=== PATIENT | male | born 1945 | race Caucasian/White ===

== ENCOUNTER 2022-11-08 12:46 | Emergency (ER) | payer MEDICARE, OTHER ==
[2022-11-08 12:56] VITALS: BP 155/76
--- NOTE | 2022-11-08 13:53 | CT Report ---
PROCEDURE: CHEST WO INDICATIONS: fall, R side rib pain TECHNIQUE: Noncontrast 1mm axial images were acquired from the pulmonary apices to the posterior costophrenic an gles. Axial 5 mm soft tissue kernel reconstructions were performed as well as 8 mm axial MIP and cor onal and sagittal 5 mm reformations. For radiation dose reduction, the following was used: automate d exposure control, adjustment of mA and/or kV according to patient size. COMPARISON: None. FINDINGS: Image quality: Excellent. Lungs and pleura: No acute air space opacities. No pleural effusions or pneumothorax. Central and peripheral airways are patent and normal in caliber. Mediastinum: Heart size is normal. No pericardial effusion. No mediastinal adenopathy by size crit eria. Thoracic aorta and central pulmonary arteries are normal in size. Esophagus is normal in johnny delfino. There is a small to moderate hiatal hernia. Bones and chest wall: There is a minimally displaced fracture of the right lateral seventh rib and a mildly displaced fracture of the right lateral eighth rib, as seen on series 12 image 229. No suspicious bony lesions. No vertebral body compression fractures. No axillary or supraclavicular adenopathy by size criteria. The thyroid is normal in size and there are no incidental findings. Abdomen: A simple appearing 8.5 cm cyst is seen involving the inferolateral aspect of the left kidney . The visualized portions of the upper abdominal structures are otherwise within normal limits. IMPRESSION: Fractures of the right lateral seventh and eighth ribs. No associated pneumothorax is seen. Additional findings: Small to moderate hiatal hernia Simple appearing left renal cyst Reviewed by: Adan Edwards MD on 11/08/2022 12:51 PM [facility] Approved by: Adan Edwards MD on 11/08/2022 12:51 PM [facility] Station ID: [id number]
[2022-11-08] MEDS ORDERED: HYDROcod/ACETAM 5/325 MG TABLET PO STA (14:41)
[2022-11-08] MEDS ORDERED: LIDOCAINE PATCH 5% TOP STA (14:41)
--- NOTE | 2022-11-08 14:45 | ED Physician Documentation ---
PD HPI BACK PAIN - Stated complaint Stated Complaint: FALL/RIB PX - Chief complaint Chief Complaint: Trauma Ch/Bk - History obtained from History obtained from: Patient - Additional information Additional information: [place] and stepped on a log which came out from under him and hit another log square on the right chest. This was 3 days ago. He has increasing right sided chest wall pain and pain with deep breathing. No other injuries. Review of Systems Constitutional: denies: Fever, Chills Nose: reports: Reviewed and negative Throat: reports: Reviewed and negative Cardiac: reports: Reviewed and negative PD PAST MEDICAL HISTORY - Present Medications Home Medications: Ambulatory Orders Medication Instructions Recorded Confirmed HYDROcod/ACETAM 5/325 [[place] 5/325] 1 - 2 tab PO Q6H PRN #20 tablet 11/08/22 Lidocaine Patch 5% [Lidoderm Patch] 1 patch TOP DAILY PRN #10 patch 11/08/22 - Allergies Allergies/Adverse Reactions: Allergies Allergy/AdvReac Type Severity Reaction Status Date / Time Penicillins Allergy Unknown Verified 11/08/22 12:50 PD ED PE NORMAL - Vitals Vital signs reviewed: Yes - General General: Alert and oriented X 3, No acute distress - HEENT HEENT: PERRL, EOMI - Neck Neck: Supple, no meningeal sign, No bony TTP - Cardiac Cardiac: RRR, No murmur - Respiratory Respiratory: No respiratory distress, Clear bilaterally - Back Back: Other (He has ecchymosis in the posterior axillary line to the mid right ribs. Tender there as well and winces with motion. No midline spinal tenderness.) - Neuro Neuro: Alert and oriented X 3, Normal speech Results - Vitals Vitals: Vital Signs - 24 hr 11/08/22 12:50 Temperature 36.5 C Heart Rate 81 Respiratory 16 Rate Blood Pressure 155/76 H O2 Saturation 97 Oxygen O2 Source Room air PD Medical Decision Making - ED course ED course: 77-year-old gentleman with chest wall injury. Differential diagnosis includes pneumothorax, rib fracture, or more serious internal injury. CT of the chest was done and interpreted independently by and by me showing right seventh and eighth minimally displaced rib fractures. Diagnosis was discussed with patient. RT was consulted for incentive spirometer and teaching. I am prescribing a short course of short-acting opioid pain medication for this patient. I have reviewed the patients [employer]ER and no concerning findings were noted. I have discussed that the opioids are for short term therapy only, and will not be refilled from the ED. Departure - Departure Disposition: 01 Home, Self Care Clinical Impression: Ribs, multiple fractures Condition: Good Record reviewed to determine appropriate education?: Yes Instructions: ED Fx Rib Prescriptions: Lidocaine Patch 5% [Lidoderm Patch] 1 patch TOP DAILY PRN #10 patch PRN Reason: pain HYDROcod/ACETAM 5/325 [[place] 5/325] 1 - 2 tab PO Q6H PRN #20 tablet PRN Reason: Pain Comments: You have Mildly displaced seventh and eighth rib fractures on the right side. There is no punctured lung or other serious injury identified. I sent a prescription for painkillers and lidocaine patches to [facility] in [place]. Use the incentive spirometer as often as you can while awake to encourage you to take deep breaths. Follow-up with your doctor in 1 week for recheck, return for new or worsening symptoms. I am prescribing a short course of narcotic pain medication for you. These are potentially dangerous and addictive medications that should be used carefully. These medications may constipate you. Take an nlnv-ivd-geswzty stool softener (docusate) twice daily with plenty of water while taking these medications. If you go 24 hours without a bowel movement, take jvxr-eif-jobfujg miralax, per package instructions. Do not drink or drive while taking these medications. If you received narcotic or sedating medications while in the emergency department, do not drive for 24 hours. Store this medication in a safe, secure place and out of reach of children. It is a violation of federal law to give or sell this medication to another person or to use in a manner other than prescribed. The ED will not refill narcotic prescriptions, including prescriptions lost or stolen. To dispose of unwanted medications: 1. [facility] at [address] in [place] has a medication drop box. They accept prescription medications (in pill form) Tuesday through Tuesday 9:00 a.m. to 5:00 p.m. 2. The [facility] [employer] accepts prescription medications (in pill form only) for disposal year round. Call for more information. 3. Contact the [facility] for the next [facility] sponsored prescription drug collection event. , [phone], or [phone]; Note that many narcotic pain relievers also contain Tylenol/acetaminophen. Please ensure that your total dose of acetaminophen from all sources does not exceed 3 g (3000 mg) per day.
--- NOTE | 2022-11-09 09:39 | ED Physician Documentation ---
ED Addendum - Addendum Addendum: 11/09/22 09:37 Patient was seen yesterday for trauma to the chest and found to have 2 rib fractures. Prescriptions were written for hydrocodone with Tylenol and lidocaine patches but were not transmitted to the patient's pharmacy. Patient called this morning and spoke to natural gas treating unit operator who then asked for my help. I did review the patient's chart and saw that prescriptions for including narcotic pain medication were intended to be transmitted to the patient's Pharmacy. The provider who saw the patient yesterday is not available today and so I did Transmit the prescriptions to the patient's pharmacy.
== END 2022-11-08 15:00 | disposition home or self-care (01) ==
LOC: ED 12:46
DX: S22.41XA Multiple fractures of ribs, right side, initial encounter for closed fracture (principal); W18.09XA Striking against other object with subsequent fall, initial encounter; Y92.832 Beach as the place of occurrence of the external cause
CPT/HCPCS: 71250; 99283; 99284; A9270

== ENCOUNTER 2024-06-05 08:00 | Outpatient (CLI) | payer MEDICARE, OTHER ==
--- NOTE | 2024-06-05 18:16 | XRAY Report ---
PROCEDURE: Ribs w/PA Chest 3+V RT INDICATIONS: CHEST PAIN, RIGHT TECHNIQUE: 2 views of the ribs were acquired, along with a single view chest. COMPARISON: CT chest dated 11/08/2022. FINDINGS: Surgical changes and devices: Postsurgical changes are noted in bilateral shoulder joints. Bones and chest wall: No fractures or dislocations. No suspicious bony lesions. Overlying soft tissues appe ar unremarkable. Lungs and pleura: No pleural effusions or pneumothorax. Lungs appear clear. Mediastinum: Mediastinal contours appear normal. Heart size is normal. IMPRESSION: No displaced rib fracture or pneumothorax. Reviewed by: Stephane Miguel MD on 06/05/2024 6:15 PM PDT Approved by: Stephane Miguel MD on 06/05/2024 6:15 PM PDT Station ID: [id number]
== END 2024-06-05 23:59 | disposition home or self-care (01) ==
LOC: DI.S 08:00
PROVIDERS: ATTEND Emergency Medicine
DX: R07.89 Other chest pain (principal)